=== PATIENT | female | born 1970 | race Caucasian/White ===

== ENCOUNTER → 2016-11-12 | Outpatient (CLI) | payer BC ==
[2016-11-12 08:19] LABS: MEAN CORPUSCULAR HEMOGLOBIN 31.2 PG (26.0-34.0); MEAN PLATELET VOLUME 8.9 FL (6.0-9.5); WHITE BLOOD COUNT 5.29 10^3uL (4.0-11.0)
[2016-11-12 08:23] LABS: MEAN CORPUSCULAR HGB CONC 36.2 g/dL (31.0-37.0)
[2016-11-12 08:34] LABS: COLOR,URINE Yellow; GLUCOSE, URINE (UA) Negative (Negative); LEUKOCYTE ESTERASE, URINE Negative (Negative)
[2016-11-12 08:38] LABS: ALBUMIN 4.8 g/dL (3.4-5.0); ANION GAP 15.6 MEQ/L (3-15); CALCULATED IONIZED CALCIUM 3.9 mg/dL (3.8-4.6); TOTAL PROTEIN 7.8 g/dL (6.4-8.5)
[2016-11-12 09:25] LABS: BILIRUBIN,URINE 1+ (Negative); CLARITY,URINE Slightly Cloudy
[2016-11-12 09:26] LABS: URINE CENTRIFUGED VOLUME 12 mL
[2016-11-12 09:27] LABS: CALCIUM OXALATE CRYSTALS,UR 1+ /HPF; RBC,URINE 0-2 /HPF
== END ==
LOC: LAB 07:59
PROVIDERS: ATTEND Family Medicine
DX: N95.8 Other specified menopausal and perimenopausal disorders (principal); E78.00 Pure hypercholesterolemia, unspecified; E78.2 Mixed hyperlipidemia; Z01.419 Encounter for gynecological examination (general) (routine) without abnormal findings; R68.82 Decreased libido
CPT/HCPCS: 36415; 80053; 80061; 81003; 81015; 82670; 84144; 84403; 84443; 85027

== ENCOUNTER → 2016-12-31 | Outpatient (REF) | payer BC ==
[2016-12-31 11:06] LABS: BILIRUBIN,URINE Negative (Negative); CLARITY,URINE Clear; COLOR,URINE Yellow; GLUCOSE, URINE (UA) Negative (Negative); LEUKOCYTE ESTERASE, URINE Negative (Negative); UROBILINOGEN,URINE 0.2 mg/dL (0.2-1.0)
[2016-12-31 11:07] LABS: BASOPHILS % (AUTO) 1 % (0-2); EOSINOPHILS # (AUTO) 0.1 10^3uL; EOSINOPHILS % (AUTO) 2 % (0-4); LYMPHOCYTES # (AUTO) 1.9 X10^3; MEAN CORPUSCULAR HEMOGLOBIN 31.1 PG (26.0-34.0); MEAN CORPUSCULAR VOLUME 86 FL (80-100); MEAN PLATELET VOLUME 9.2 FL (6.0-9.5); MONOCYTES # (AUTO) 0.5 X10^3; MONOCYTES % (AUTO) 10 % (3-11); NEUTROPHILS # (AUTO) 2.8 X10^3; NEUTROPHILS % (AUTO) 52 % (51-67); PLATELET COUNT 303 10^3uL (150-450); WHITE BLOOD COUNT 5.33 10^3uL (4.0-11.0)
[2016-12-31 11:09] LABS: URINE CENTRIFUGED VOLUME 12 mL
[2016-12-31 11:12] LABS: RBC,URINE 0-2 /HPF
[2016-12-31 12:13] LABS: ALBUMIN 4.6 g/dL (3.4-5.0); ANION GAP 15.8 MEQ/L (3-15); CALCULATED IONIZED CALCIUM 4.1 mg/dL (3.8-4.6); TOTAL PROTEIN 7.8 g/dL (6.4-8.5)
== END ==
LOC: LAB 10:36
PROVIDERS: ATTEND Nurse Practitioner Family
DX: R10.13 Epigastric pain (principal)
CPT/HCPCS: 80053; 81003; 81015; 82150; 83690; 85025

== ENCOUNTER → 2017-01-05 | Outpatient (CLI) | payer BC | LOC: RAD 09:45 | PROVIDERS: ATTEND Nurse Practitioner Family | DX: R10.13 Epigastric pain (principal) | CPT/HCPCS: 74170; Q9967 ==